=== PATIENT | female | born 1985 | race Caucasian/White ===

== ENCOUNTER → 2019-07-09 | Outpatient (CLI) | payer OTHER | LOC: COL.RAD 06-28 10:30 | DX: M25.511 Pain in right shoulder (principal) ==

== ENCOUNTER → 2020-02-29 | Outpatient (CLI) | payer OTHER | LOC: COL.RAD | DX: M25.531 Pain in right wrist (principal); R60.0 Localized edema ==

== ENCOUNTER → 2020-06-05 | Outpatient (CLI) | payer OTHER | LOC: COL.RAD 05-15 09:45 | DX: D75.89 Other specified diseases of blood and blood-forming organs (principal) | CPT/HCPCS: A9585; Q9967 ==

== ENCOUNTER → 2021-06-04 | Outpatient (CLI) | payer OTHER | LOC: COL.RAD 07:44 | DX: S63.071A Subluxation of distal end of right ulna, initial encounter (principal) | CPT/HCPCS: A9585; Q9967 ==